=== PATIENT | male | born 1975 | race Two or more races ===

== ENCOUNTER 2019-01-01 14:41 | Inpatient (IN) | payer MEDICAID | END 2019-01-03 15:10 | disposition home or self-care (01) | LOC: ER 14:41 → TELE-WESTW 20:21 → TELE 14:42 → TELE-WESTW 20:47 | DX: I48.0 Paroxysmal atrial fibrillation (principal); D69.6 Thrombocytopenia, unspecified; F10.20 Alcohol dependence, uncomplicated; F41.9 Anxiety disorder, unspecified; R74.8 Abnormal levels of other serum enzymes; J45.909 Unspecified asthma, uncomplicated ==

== ENCOUNTER 2019-02-13 20:52 | Emergency (ER) | payer MEDICAID ==
[~2019-02-13] VITALS: Ht 180.3 cm; Wt 91.2 kg
[~2019-02-13 20:52] MED LIST: AMOX-263 PO; CHL25C PO; MET25T PO; PANT40T PO; RIV20T PO
[2019-02-13 21:40] VITALS: BP 130/84
[2019-02-13 22:23] LABS: Basophils # (auto) 0.1 uL; Eosinophils % (auto) 14.1 % (0.0-7.0); Hematocrit 49.1 % (41.0-53.0); Hemoglobin 16.9 g/dL (13.5-17.5); Lymphocytes # (auto) 3.2 uL; Lymphocytes % (auto) 21.9 % (10.0-50.0); Mean Corpuscular Hemoglobin 30.7 pg (28.0-32.0); Mean Corpuscular Hgb Conc. 34.5 g/dL (32.0-36.0); Mean Corpuscular Volume 88.9 fL (80.0-100.0); Monocytes # (auto) 1.1 uL; Monocytes % (auto) 7.7 % (0.0-12.0); Neutrophils % (auto) 55.3 % (37.0-80.0); Nucleated Red Blood Cells % 0.1 %; Platelet Count (auto) 323 10^3/uL (140-450); Red Blood Cells 5.52 10^6/uL (4.5-5.90); Red Cell Distribution Width 13.9 % (11.8-14.3); White Blood Cell 14.5 10^3/uL (4.4-10.8)
[2019-02-13 22:36] LABS: Alanine Aminotransferase 34 U/L (16-61); Albumin 3.9 g/dL (3.4-5.0); Anion Gap 13 (5-15); Blood Urea Nitrogen 6 mg/dL (7-18); Calcium 8.4 mg/dL (8.5-10.1); Carbon Dioxide 25 mmol/L (21-32); Chloride 97 mmol/L (98-107); Glucose 112 mg/dL (74-106); Magnesium 2.6 mg/dL (1.6-2.6); Salicylate < 1.7 mg/dL (2.8-20.0); Sodium 135 mmol/L (136-145)
[2019-02-13 22:38] LABS: Acetaminophen < 2.0 ug/mL (10-30)
[2019-02-13 22:39] LABS: Lactic Acid w/Reflex 2.8 mmol/L (0.4-2.0)
[2019-02-13 22:41] LABS: Alkaline Phosphatase 105 U/L (45-117); Aspartate Aminotransferase 33 U/L (15-37); BUN/Creatinine Ratio 7.5; Bilirubin, Total 0.4 mg/dL (0.2-1.0); GFR African American 136 mL/min; GFR Non-African American 113 mL/min; Total Protein 8.4 g/dL (6.4-8.2)
== END 2019-02-14 04:14 | disposition left against medical advice (07) ==
LOC: ER 20:54
DX: R05 Cough (principal); R07.9 Chest pain, unspecified; Z53.21 Procedure and treatment not carried out due to patient leaving prior to being seen by health care provider
CPT/HCPCS: 36415; 80053; 80320; 80329; 83605; 83735; 84484; 85025; 85379; 93005; 94761

== ENCOUNTER 2019-06-24 10:06 | Emergency (ER) | payer MEDICAID ==
[~2019-06-24] VITALS: Ht 180.3 cm; Wt 92.5 kg
[2019-06-24] MEDS ORDERED: SODIUM CHLORIDE 0.9% 1,000 ML IV ONE ×2 (10:11)
[2019-06-24] MEDS ORDERED: chlordiazePOXIDE HCL 5 MG CAP PO ONE (10:15)
[2019-06-24] MEDS ORDERED: PANTOPRAZOLE 40 MG/10 ML VIAL INJ IV ONE (10:30)
[2019-06-24 10:42] LABS: Basophils # (auto) 0 uL; Basophils % (auto) 0.5 % (0.0-2.0); Eosinophils # (auto) 0 uL; Eosinophils % (auto) 0.6 % (0.0-7.0); Hemoglobin 15.6 g/dL (13.5-17.5); Lymphocytes # (auto) 1.5 uL; Mean Corpuscular Hemoglobin 30.8 pg (28.0-32.0); Mean Corpuscular Hgb Conc. 34.6 g/dL (32.0-36.0); Mean Corpuscular Volume 89.1 fL (80.0-100.0); Monocytes # (auto) 0.7 uL; Monocytes % (auto) 11.2 % (0.0-12.0); Neutrophils # (auto) 4.4 uL; Neutrophils % (auto) 65.7 % (37.0-80.0); Platelet Count (auto) 143 10^3/uL (140-450); Red Blood Cells 5.05 10^6/uL (4.5-5.90); Red Cell Distribution Width 14.6 % (11.8-14.3); White Blood Cell 6.7 10^3/uL (4.4-10.8)
[2019-06-24 11:05] LABS: Albumin 3.5 g/dL (3.4-5.0); Anion Gap 6 (5-15); Blood Urea Nitrogen 6 mg/dL (7-18); Calcium 8.9 mg/dL (8.5-10.1); Carbon Dioxide 27 mmol/L (21-32); Chloride 99 mmol/L (98-107); Glucose 118 mg/dL (74-106); Potassium 3.5 mmol/L (3.5-5.1); Sodium 132 mmol/L (136-145)
[2019-06-24 11:10] LABS: Alanine Aminotransferase 49 U/L (16-61); Alkaline Phosphatase 112 U/L (45-117); Aspartate Aminotransferase 44 U/L (15-37); BUN/Creatinine Ratio 6.9; Bilirubin, Total 1.2 mg/dL (0.2-1.0); GFR African American 124 mL/min; GFR Non-African American 102 mL/min
[2019-06-24 16:20] VITALS: BP 140/73
== END 2019-06-24 16:50 | disposition home or self-care (01) ==
LOC: ER 10:06
DX: F10.239 Alcohol dependence with withdrawal, unspecified (principal); F41.9 Anxiety disorder, unspecified; E86.0 Dehydration; J45.909 Unspecified asthma, uncomplicated; F17.210 Nicotine dependence, cigarettes, uncomplicated; Y90.9 Presence of alcohol in blood, level not specified
CPT/HCPCS: 36415; 80053; 84484; 85025; 96361; 96374; 99283; C9113; J7030

== ENCOUNTER 2020-04-30 14:05 | Emergency (ER) | payer MEDICAID ==
[~2020-04-30] VITALS: Ht 180.3 cm; Wt 99.8 kg
[2020-04-30 16:10] VITALS: BP 130/71
== END 2020-04-30 15:24 | disposition home or self-care (01) ==
LOC: ER 14:05
DX: J45.909 Unspecified asthma, uncomplicated (principal); Z20.828 Contact with and (suspected) exposure to other viral communicable diseases
CPT/HCPCS: 36415; 71045; 87426

== ENCOUNTER 2020-09-10 09:04 | Inpatient (IN) | payer MEDICAID ==
[~2020-09-10] VITALS: Ht 177.8 cm; Wt 96.6 kg
[2020-09-10] MEDS ORDERED: LORazepam 2MG/ML-1ML VIAL IV ONE ×4 (09:15→18:45)
[2020-09-10] MEDS ORDERED: THIAMINE 100mg/ml INJ (200mg/2ml VIAL) IV ONE (09:15)
[2020-09-10] MEDS ORDERED: SODIUM CHLORIDE 0.9% 1,000 ML IV ONE ×4 (09:15→12:45)
[2020-09-10 09:36] LABS: Hematocrit 38.8 % (41.0-53.0); Hemoglobin 13.7 g/dL (13.5-17.5); Mean Corpuscular Hemoglobin 29.6 pg (28.0-32.0); Mean Corpuscular Hgb Conc. 35.3 g/dL (32.0-36.0); Mean Corpuscular Volume 83.7 fL (80.0-100.0); Platelet Count (auto) 313 10^3/uL (140-450); Red Blood Cells 4.63 10^6/uL (4.5-5.90); Red Cell Distribution Width 13.8 % (11.8-14.3); White Blood Cell 24.2 10^3/uL (4.4-10.8)
[2020-09-10 09:48] LABS: Basophils % (manual) 0 (0.0-2.0); Blast Cells 0; Eosinophils % (manual) 0 (0-7); Metamyelocytes % 0; Myelocytes % 0; Promyelocytes % 0; Reactive Lymphocytes 0
[2020-09-10 09:54] LABS: Albumin 3.8 g/dL (3.4-5.0); Anion Gap 31.00001 (5-15); Blood Urea Nitrogen 39 mg/dL (7-18); Calcium 8.6 mg/dL (8.5-10.1); Carbon Dioxide 28 mmol/L (21-32); Chloride < 50 mmol/L (98-107); Glucose 114 mg/dL (74-106); Magnesium 3.6 mg/dL (1.6-2.6)
[2020-09-10 09:57] LABS: Alanine Aminotransferase 44 U/L (16-61); Alkaline Phosphatase 71 U/L (45-117); Aspartate Aminotransferase 58 U/L (15-37); BUN/Creatinine Ratio 17.2; Bilirubin, Total 1.9 mg/dL (0.2-1.0); GFR African American 41 mL/min; GFR Non-African American 33 mL/min; Total Protein 7.6 g/dL (6.4-8.2)
[2020-09-10 11:04] LABS: Band Neutrophils % (manual) 10; Lymphocytes % (manual) 9 (10.0-50.0); Monocytes % (manual) 5 (0-12)
[2020-09-10 11:47] LABS: Potassium 2.5 mmol/L (3.5-5.1); Sodium 109 mmol/L (136-145)
[2020-09-10] MEDS ORDERED: chlordiazePOXIDE HCL 5 MG CAP PO ONE (12:00)
[2020-09-10] MEDS: FOLIC ACID 1 MG in D5W 5% 50 ML INJ SCH (13:00)
[2020-09-10] MEDS ORDERED: ACETAMINOPHEN 325 MG TAB PO PRN (13:00)
[2020-09-10] MEDS ORDERED: SODIUM CHLORIDE 0.9% 1,000 ML IV SCH ×3 (13:00→22:00)
[2020-09-10] MEDS ORDERED: LORazepam 2MG/ML-1ML VIAL IV PRN (13:00)
[2020-09-10] MEDS: POTASSIUM CHL 20MEQ/100ML 100 ML IV SCH ×3 (13:17→18:07)
[2020-09-10] MEDS ORDERED: GABAPENTIN 100 MG CAP PO SCH (14:00)
[2020-09-10 15:52] LABS: BUN/Creatinine Ratio 24.2; Calcium 7.6 mg/dL (8.5-10.1)
[2020-09-10 15:55] LABS: Potassium 2.2 mmol/L (3.5-5.1)
[2020-09-10] MEDS ORDERED: SODIUM CHL 3% 500 ML IV SCH (16:00)
[2020-09-10] MEDS ORDERED: SODIUM CHL 3% 500 ML IV ONE (16:00)
[2020-09-10 16:13] LABS: Amylase 64 U/L (25-115); Lipase 114 U/L (73-393)
[2020-09-10] MEDS ORDERED: SODIUM CHL 3% 100 ML IV ONE (16:30)
[2020-09-10] MEDS ORDERED: POTASSIUM EFFERVESENT TAB 25 MEQ PO ONE (17:15)
[2020-09-10] MEDS ORDERED: LORazepam 2MG/ML-1ML VIAL IM ONE (18:30)
[2020-09-10 18:40] LABS: BUN/Creatinine Ratio 22.5; Calcium 7.7 mg/dL (8.5-10.1)
[2020-09-10 19:16] LABS: Potassium 2.4 mmol/L (3.5-5.1)
[2020-09-10 19:22] LABS: Urine Bacteria NONE SEEN /hpf (None Seen); Urine Blood 2+ /uL (Negative); Urine Specific Gravity 1.016 (1.001-1.035); Urine WBC 16 /hpf (0 - 3)
[2020-09-10 19:31] LABS: Amphetamine Screen, Urine NEGATIVE (NEGATIVE); Barbiturate Scree,Urine NEGATIVE (NEGATIVE); Benzodiazephine Screen, Urine NEGATIVE (NEGATIVE); Cannabinoid Screen, Urine NEGATIVE (NEGATIVE); Cocaine Screen, Urine NEGATIVE (NEGATIVE); Creatinine, Urine 98 mg/dL (30.0-125.0); Opiate Scree,Urine NEGATIVE (NEGATIVE); Phencyclidine Screen, Urine NEGATIVE (NEGATIVE); Sodium Urine 17 mmol/L (40-220)
[2020-09-10 19:32] LABS: Protein, Urine 41.5 mg/dL (0.0-11.9)
[2020-09-10] MEDS ORDERED: POTASSIUM CHL 20MEQ/100ML 100 ML IV ONE (20:15)
[2020-09-10] MEDS: GABAPENTIN 300 MG CAP PO SCH (22:00)
[2020-09-10 22:43] LABS: BUN/Creatinine Ratio 23.1
[2020-09-10] MEDS ORDERED: SOD CHL 0.45% WITH 20MEQ KCL 1,000 ML IV SCH (22:45)
[2020-09-10 22:49] LABS: Potassium 2.2 mmol/L (3.5-5.1)
[2020-09-11 01:56] LABS: BUN/Creatinine Ratio 23.5
[2020-09-11 02:12] LABS: Potassium 2.4 mmol/L (3.5-5.1)
[2020-09-11 04:51] LABS: Basophils # (auto) 0.1 10 ^3/uL (0-0.2); Basophils % (auto) 0.6 % (0.0-2.0); Eosinophils # (auto) 0 10 ^3/uL (0-0.8); Eosinophils % (auto) 0.1 % (0.0-7.0); Hematocrit 34.9 % (41.0-53.0); Hemoglobin 12.4 g/dL (13.5-17.5); Lymphocytes # (auto) 1.3 10 ^3/uL (0.4-5.4); Lymphocytes % (auto) 9.1 % (10.0-50.0); Mean Corpuscular Hemoglobin 29.9 pg (28.0-32.0); Mean Corpuscular Hgb Conc. 35.4 g/dL (32.0-36.0); Mean Corpuscular Volume 84.6 fL (80.0-100.0); Monocytes # (auto) 0.9 10 ^3/uL (0-1.3); Monocytes % (auto) 6.1 % (0.0-12.0); Neutrophils # (auto) 12.2 10 ^3/uL (1.6-8.6); Neutrophils % (auto) 84.1 % (37.0-80.0); Nucleated Red Blood Cells % 0.1 %; Platelet Count (auto) 192 10^3/uL (140-450); Red Blood Cells 4.13 10^6/uL (4.5-5.90); Red Cell Distribution Width 13.9 % (11.8-14.3); White Blood Cell 14.5 10^3/uL (4.4-10.8)
[2020-09-11 05:03] LABS: Albumin 3.5 g/dL (3.4-5.0); Calcium 7.9 mg/dL (8.5-10.1)
[2020-09-11 05:07] LABS: BUN/Creatinine Ratio 20.7; Bilirubin, Total 1.3 mg/dL (0.2-1.0); Phosphorus 2.2 mg/dL (2.5-4.90); Total Protein 6.7 g/dL (6.4-8.2)
[2020-09-11 05:25] LABS: Potassium 2.3 mmol/L (3.5-5.1)
[2020-09-11] MEDS ORDERED: POTASSIUM EFFERVESENT TAB 25 MEQ PO ONE (06:15)
[2020-09-11] MEDS ORDERED: POTASSIUM CHLORIDE 40 MEQ, LIDOCAINE 1% (LOCAL ANESTH.) 4 ML in SODIUM CHL 0.9% 250 ML IV ONE (06:15)
[2020-09-11] MEDS: GABAPENTIN 300 MG CAP PO SCH ×3 (06:25→21:33)
[2020-09-11] MEDS ORDERED: POTASSIUM CHL 20 Meq TABLET PO ONE ×3 (09:00→17:15)
[2020-09-11] MEDS ORDERED: POTASSIUM CHL 20MEQ/100ML 100 ML IV SCH (09:00)
[2020-09-11] MEDS ORDERED: POTASSIUM CHLORIDE 40 MEQ in SOD CHL 0.45% 1,000 ML IV SCH (09:00)
[2020-09-11] MEDS: POTASSIUM CHLORIDE 40 MEQ in D5W 5% 1,000 ML IV SCH ×2 (10:30→17:48)
[2020-09-11 10:52] LABS: BUN/Creatinine Ratio 22.4; Calcium 8.2 mg/dL (8.5-10.1)
[2020-09-11] MEDS: THIAMINE 100mg/ml INJ (200mg/2ml VIAL) IV SCH (10:58)
[2020-09-11] MEDS ORDERED: POTASSIUM PHOSPHATE 44 MEQ in D5W 5% 250 ML IV ONE (11:00)
[2020-09-11 11:39] LABS: Potassium 2.5 mmol/L (3.5-5.1)
[2020-09-11] MEDS: chlordiazePOXIDE HCL 25 MG CAP PO PRN ×2 (12:48→22:42)
[2020-09-11 13:03] VITALS: BP 130/73
[2020-09-11 14:10] LABS: Albumin 3.3 g/dL (3.4-5.0); Calcium 8.2 mg/dL (8.5-10.1)
[2020-09-11 14:15] LABS: BUN/Creatinine Ratio 17.6; Bilirubin, Total 1.2 mg/dL (0.2-1.0); Total Protein 6.6 g/dL (6.4-8.2)
[2020-09-11 14:55] LABS: Potassium 2.5 mmol/L (3.5-5.1)
[2020-09-11 15:06] VITALS: BP 130/73
[2020-09-11 16:50] LABS: Calcium 8.2 mg/dL (8.5-10.1)
[2020-09-11 16:59] LABS: Potassium 2.5 mmol/L (3.5-5.1)
[2020-09-11 17:15] VITALS: BP 120/72
[2020-09-11] MEDS: FOLIC ACID 1 MG in D5W 5% 50 ML INJ SCH (17:48)
[2020-09-11 18:14] LABS: Potassium 2.6 mmol/L (3.5-5.1)
[2020-09-11 20:00] VITALS: BP 101/61
[2020-09-11 20:02] LABS: Calcium 8.4 mg/dL (8.5-10.1); Potassium 3.2 mmol/L (3.5-5.1)
[2020-09-11 22:14] VITALS: BP 101/61
[2020-09-11 23:09] LABS: BUN/Creatinine Ratio 15.8; Calcium 8.1 mg/dL (8.5-10.1)
[2020-09-11 23:10] LABS: Potassium 2.9 mmol/L (3.5-5.1)
[2020-09-12 05:00] VITALS: BP 112/76
[2020-09-12] MEDS: POTASSIUM CHLORIDE 40 MEQ in D5W 5% 1,000 ML IV SCH (05:30)
[2020-09-12] MEDS: GABAPENTIN 300 MG CAP PO SCH ×2 (05:47→14:24)
[2020-09-12 09:00] VITALS: BP 130/72
[2020-09-12] MEDS: FOLIC ACID 1 MG in D5W 5% 50 ML INJ SCH (10:34)
[2020-09-12] MEDS: THIAMINE 100mg/ml INJ (200mg/2ml VIAL) IV SCH (10:35)
[2020-09-12 10:43] LABS: Basophils # (auto) 0 10 ^3/uL (0-0.2); Basophils % (auto) 0.2 % (0.0-2.0); Eosinophils # (auto) 0.4 10 ^3/uL (0-0.8); Eosinophils % (auto) 3.3 % (0.0-7.0); Hematocrit 34.6 % (41.0-53.0); Hemoglobin 11.7 g/dL (13.5-17.5); Lymphocytes # (auto) 1.8 10 ^3/uL (0.4-5.4); Lymphocytes % (auto) 15.8 % (10.0-50.0); Mean Corpuscular Hemoglobin 29.3 pg (28.0-32.0); Mean Corpuscular Hgb Conc. 33.9 g/dL (32.0-36.0); Mean Corpuscular Volume 86.5 fL (80.0-100.0); Monocytes # (auto) 0.9 10 ^3/uL (0-1.3); Monocytes % (auto) 7.6 % (0.0-12.0); Neutrophils # (auto) 8.2 10 ^3/uL (1.6-8.6); Neutrophils % (auto) 73.1 % (37.0-80.0); Platelet Count (auto) 188 10^3/uL (140-450); Red Cell Distribution Width 13.6 % (11.8-14.3); White Blood Cell 11.2 10^3/uL (4.4-10.8)
[2020-09-12 10:50] LABS: Albumin 3.1 g/dL (3.4-5.0); Calcium 8.3 mg/dL (8.5-10.1); Potassium 3.1 mmol/L (3.5-5.1)
[2020-09-12 10:53] LABS: BUN/Creatinine Ratio 15.1; Bilirubin, Total 0.8 mg/dL (0.2-1.0); Total Protein 6.6 g/dL (6.4-8.2)
[2020-09-12] MEDS ORDERED: POTASSIUM PHOSPHATE 22 MEQ in SODIUM CHL 0.9% 100 ML IV ONE (11:45)
[2020-09-12] MEDS ORDERED: FOLI1TAB6 PO ×2 (11:51)
[2020-09-12] MEDS ORDERED: THIA50CA PO ×2 (11:51)
[2020-09-12] MEDS ORDERED: GABA300C10 PO ×2 (11:51)
[2020-09-12] MEDS ORDERED: POTASSIUM CHL 20 Meq TABLET PO ONE ×2 (12:00)
[2020-09-12 12:41] VITALS: BP 128/79
[2020-09-12 16:58] VITALS: BP 143/73
== END 2020-09-12 20:03 | disposition home health service (06) | DRG 280 ==
LOC: ER 09:04 → EDBD 09:04 → TELE 09:05 → TELE-WESTW 09-11 11:46
PROVIDERS: ADMIT Internal Medicine; ATTEND Internal Medicine Nephrology
DX: K70.10 Alcoholic hepatitis without ascites (principal); N17.0 Acute kidney failure with tubular necrosis; Z20.822 Contact with and (suspected) exposure to COVID-19; E83.39 Other disorders of phosphorus metabolism; E87.1 Hypo-osmolality and hyponatremia; E86.0 Dehydration; D72.829 Elevated white blood cell count, unspecified; G40.909 Epilepsy, unspecified, not intractable, without status epilepticus; Y90.1 Blood alcohol level of 20-39 mg/100 ml; F10.239 Alcohol dependence with withdrawal, unspecified; E87.6 Hypokalemia; F10.229 Alcohol dependence with intoxication, unspecified; F17.210 Nicotine dependence, cigarettes, uncomplicated; J45.909 Unspecified asthma, uncomplicated
CPT/HCPCS: 36415; 51702; 70450; 71045; 72125; 72192; 76775; 80048; 80053; 80307; 80320; 81001; 82150; 82570; 83690; 83735; 83935; 84100; 84156; 84300; 85007; 85025; 85027; 87040; 87426; 93005; 96361; 96374; 96375; 96376; 99291; G0378; J2001; J3480; J7060

== ENCOUNTER 2020-09-15 11:58 | Emergency (ER) | payer MEDICAID ==
[~2020-09-15] VITALS: Ht 180.3 cm; Wt 99.8 kg
[~2020-09-15 11:58] MED LIST changes: -AMOX-263 PO; -CHL25C PO; +FOLI1TAB6 PO; +GABA300C10 PO; -MET25T PO; -PANT40T PO; -RIV20T PO; +THIA50CA PO
[2020-09-15 12:24] LABS: Urine WBC None Seen /hpf (0 - 3)
[2020-09-15 12:39] LABS: Basophils # (auto) 0.1 10 ^3/uL (0-0.2); Basophils % (auto) 0.7 % (0.0-2.0); Eosinophils # (auto) 0.6 10 ^3/uL (0-0.8); Hemoglobin 11.4 g/dL (13.5-17.5); Lymphocytes # (auto) 1.7 10 ^3/uL (0.4-5.4); Lymphocytes % (auto) 17.6 % (10.0-50.0); Mean Corpuscular Hemoglobin 30.2 pg (28.0-32.0); Mean Corpuscular Hgb Conc. 34.4 g/dL (32.0-36.0); Mean Corpuscular Volume 87.7 fL (80.0-100.0); Monocytes # (auto) 1.3 10 ^3/uL (0-1.3); Monocytes % (auto) 13.4 % (0.0-12.0); Neutrophils % (auto) 62.3 % (37.0-80.0); Platelet Count (auto) 251 10^3/uL (140-450); Red Blood Cells 3.77 10^6/uL (4.5-5.90); Red Cell Distribution Width 14.9 % (11.8-14.3); White Blood Cell 9.6 10^3/uL (4.4-10.8)
[2020-09-15 12:40] LABS: Urine Bacteria NONE SEEN /hpf (None Seen); Urine Blood Negative /uL (Negative); Urine Specific Gravity 1.003 (1.001-1.035)
[2020-09-15 12:53] LABS: Calcium 8.5 mg/dL (8.5-10.1); Magnesium 1.9 mg/dL (1.6-2.6)
[2020-09-15 12:59] LABS: Amphetamine Screen, Urine NEGATIVE (NEGATIVE); Barbiturate Scree,Urine NEGATIVE (NEGATIVE); Benzodiazephine Screen, Urine POSITIVE (NEGATIVE); Cannabinoid Screen, Urine NEGATIVE (NEGATIVE); Cocaine Screen, Urine NEGATIVE (NEGATIVE); Opiate Scree,Urine NEGATIVE (NEGATIVE); Phencyclidine Screen, Urine NEGATIVE (NEGATIVE)
[2020-09-15 12:59] LABS: Albumin 3.2 g/dL (3.4-5.0); BUN/Creatinine Ratio 5.7; Bilirubin, Total 0.4 mg/dL (0.2-1.0); Total Protein 6.8 g/dL (6.4-8.2)
[2020-09-15] MEDS ORDERED: PANTOPRAZOLE 40 MG TAB PO ONE ×2 (15:06→15:15)
[2020-09-15 15:58] VITALS: BP 136/82
== END 2020-09-15 16:01 | disposition home or self-care (01) ==
LOC: ER 11:58
DX: K29.60 Other gastritis without bleeding (principal); K46.9 Unspecified abdominal hernia without obstruction or gangrene; K44.9 Diaphragmatic hernia without obstruction or gangrene; R79.89 Other specified abnormal findings of blood chemistry; F17.210 Nicotine dependence, cigarettes, uncomplicated; Z88.8 Allergy status to other drugs, medicaments and biological substances
CPT/HCPCS: 36415; 74176; 80053; 80307; 80320; 81001; 82150; 83690; 83735; 85025

== ENCOUNTER 2021-07-07 09:00 | Inpatient (IN) | payer MEDICAID ==
[~2021-07-07] VITALS: Ht 180.3 cm; Wt 95.3 kg
[2021-07-07] MEDS ORDERED: ADENOSINE 6 MG/2 ML INJ IV ONE ×2 (09:17→09:20)
[2021-07-07] MEDS ORDERED: LORazepam 2MG/ML-1ML VIAL ONE (09:24)
[2021-07-07 10:06] LABS: Albumin 3.7 g/dL (3.4-5.0); Calcium 8.4 mg/dL (8.5-10.1); Magnesium 2.8 mg/dL (1.6-2.6); Potassium 3.5 mmol/L (3.5-5.1)
[2021-07-07 10:08] LABS: Eosinophils # (auto) 0.1 10 ^3/uL (0-0.8); Lymphocytes % (auto) 12.8 % (10.0-50.0); Monocytes # (auto) 1.2 10 ^3/uL (0-1.3); Neutrophils # (auto) 11.2 10 ^3/uL (1.6-8.6); Neutrophils % (auto) 77.5 % (37.0-80.0)
[2021-07-07 10:10] LABS: Basophils # (auto) 0.1 10 ^3/uL (0-0.2); Basophils % (auto) 0.8 % (0.0-2.0); Eosinophils % (auto) 0.4 % (0.0-7.0); Hematocrit 35.3 % (41.0-53.0); Hemoglobin 10.9 g/dL (13.5-17.5); Lymphocytes # (auto) 1.8 10 ^3/uL (0.4-5.4); Mean Corpuscular Hemoglobin 22.1 pg (28.0-32.0); Mean Corpuscular Hgb Conc. 30.9 g/dL (32.0-36.0); Mean Corpuscular Volume 71.5 fL (80.0-100.0); Monocytes % (auto) 8.5 % (0.0-12.0); Nucleated Red Blood Cells % 0.1 %; Red Blood Cells 4.94 10^6/uL (4.5-5.90); Red Cell Distribution Width 24.1 % (11.8-14.3); White Blood Cell 14.4 10^3/uL (4.4-10.8)
[2021-07-07 10:12] LABS: Bilirubin, Total 0.5 mg/dL (0.2-1.0); Total Protein 8.1 g/dL (6.4-8.2)
[2021-07-07 10:49] LABS: INR 0.92 (0.9-1.15); Partial Thromboplastin Time 26.5 sec (23.6-33.0)
[2021-07-07] MEDS ORDERED: LORazepam 2MG/ML-1ML VIAL IV ONE (13:15)
[2021-07-07] MEDS ORDERED: NITROGLYCERIN 0.4 MG SL TAB SL ONE ×2 (14:00→14:06)
[2021-07-07] MEDS ORDERED: ASPirin 81 mg TAB PO ONE (14:00)
[2021-07-07] MEDS ORDERED: ASPirin-EC 81 mg tab PO ONE (14:06)
[2021-07-07] MEDS ORDERED: NITROGLYCERIN 0.4 MG SL TAB SL PRN (15:00)
[2021-07-07] MEDS ORDERED: PROMETHAZINE HCL 25 MG/ML 1ML IV PRN (15:00)
[2021-07-07] MEDS ORDERED: HYDROcodone-ACET 5/325MG TAB PO PRN (15:00)
[2021-07-07] MEDS: SODIUM CHLORIDE 0.9% 1,000 ML IV SCH ×3 (15:00→22:18)
[2021-07-07] MEDS ORDERED: MORPHINE SULFATE INJECTION 2 MG/ML SYRG IV PRN (15:00)
[2021-07-07] MEDS ORDERED: ACETAMINOPHEN 500 MG TAB PO PRN (15:00)
[2021-07-07] MEDS: FOLIC ACID 1 MG, MULTIPLE VITAMIN 10 ML, THIAMINE INJ 100 MG in SODIUM CHLORIDE 0.9% 1,... INJ SCH ×2 (17:12→22:19)
[2021-07-07] MEDS: GABAPENTIN 300 MG CAP PO SCH ×2 (17:22→22:22)
[2021-07-07] MEDS: PROPRANOLOL HCL 20 MG TAB PO SCH ×2 (22:20→22:24)
[2021-07-07] MEDS: PANTOPRAZOLE 40 MG TAB PO SCH (22:21)
[2021-07-08] MEDS: FOLIC ACID 1 MG, MULTIPLE VITAMIN 10 ML, THIAMINE INJ 100 MG in SODIUM CHLORIDE 0.9% 1,... INJ SCH (05:17)
[2021-07-08 07:57] LABS: Calcium 8.3 mg/dL (8.5-10.1); Potassium 3.7 mmol/L (3.5-5.1)
[2021-07-08 07:59] LABS: BUN/Creatinine Ratio 12.3
[2021-07-08] MEDS ORDERED: THIAMINE HCL 100 MG TAB PO SCH (10:00)
[2021-07-08] MEDS: GABAPENTIN 300 MG CAP PO SCH ×4 (10:02→23:00)
[2021-07-08] MEDS: PANTOPRAZOLE 40 MG TAB PO SCH ×2 (10:03→23:00)
[2021-07-08] MEDS ORDERED: FOLIC ACID 1 MG, MULTIPLE VITAMIN 10 ML, THIAMINE INJ 100 MG in SODIUM CHLORIDE 0.9% 1,... INJ SCH (12:00)
[2021-07-08] MEDS: LORazepam 2MG/ML-1ML VIAL IV PRN (13:14)
[2021-07-08 16:21] LABS: Alcohol, Urine < 3.0 mg/dL (0-10); Amphetamine Screen, Urine NEGATIVE (NEGATIVE); Barbiturate Scree,Urine NEGATIVE (NEGATIVE); Benzodiazephine Screen, Urine NEGATIVE (NEGATIVE); Cannabinoid Screen, Urine NEGATIVE (NEGATIVE); Cocaine Screen, Urine NEGATIVE (NEGATIVE); Opiate Scree,Urine NEGATIVE (NEGATIVE); Phencyclidine Screen, Urine NEGATIVE (NEGATIVE)
[2021-07-08] MEDS: SODIUM CHLORIDE 0.9% 1,000 ML IV SCH (23:00)
[2021-07-08] MEDS: PROPRANOLOL HCL 20 MG TAB PO SCH (23:00)
[2021-07-09] MEDS: LORazepam 2MG/ML-1ML VIAL IV PRN (00:15)
[2021-07-09] MEDS: GABAPENTIN 300 MG CAP PO SCH (06:11)
[2021-07-09] MEDS: SODIUM CHLORIDE 0.9% 1,000 ML IV SCH (06:11)
[2021-07-09] MEDS: PANTOPRAZOLE 40 MG TAB PO SCH (10:04)
[2021-07-09] MEDS: PROPRANOLOL HCL 20 MG TAB PO SCH (10:04)
[2021-07-09 10:24] VITALS: BP 142/93
[2021-07-09] MEDS ORDERED: PROP20TA73 PO (11:22)
[2021-07-09] MEDS ORDERED: GABA300C10 PO (11:22)
[2021-07-09] MEDS ORDERED: FOLIC ACID 1 MG, MULTIPLE VITAMIN 10 ML, THIAMINE INJ 100 MG, MAGNESIUM SULF SDV 50% 8 ... INJ SCH ×5 (12:00)
== END 2021-07-09 11:52 | disposition home or self-care (01) | DRG 201 ==
LOC: ER 09:00 → TELE 14:49
PROVIDERS: ADMIT Hospitalist; ATTEND Hospitalist
DX: I47.1 Supraventricular tachycardia (principal); K70.9 Alcoholic liver disease, unspecified; D64.9 Anemia, unspecified; F41.9 Anxiety disorder, unspecified; E66.9 Obesity, unspecified; F10.229 Alcohol dependence with intoxication, unspecified; F17.210 Nicotine dependence, cigarettes, uncomplicated; J45.909 Unspecified asthma, uncomplicated; Z20.822 Contact with and (suspected) exposure to COVID-19; F10.21 Alcohol dependence, in remission; Z68.29 Body mass index [BMI] 29.0-29.9, adult; Z82.49 Family history of ischemic heart disease and other diseases of the circulatory system
CPT/HCPCS: 36415; 71045; 80048; 80053; 80307; 80320; 83735; 84439; 84443; 84484; 85025; 85610; 85730; 87426; 93005; 93306; 96365; 96375; 96376; G0378

== ENCOUNTER 2021-08-11 14:40 | Emergency (ER) | payer MEDICAID ==
[~2021-08-11] VITALS: Ht 180.3 cm; Wt 95.3 kg
[~2021-08-11 14:40] MED LIST changes: +PROP20TA73 PO
[2021-08-11] MEDS ORDERED: LORazepam 2MG/ML-1ML VIAL IV ONE (15:15)
[2021-08-11] MEDS ORDERED: SODIUM CHLORIDE 0.9% 1,000 ML IV ONE (15:15)
[2021-08-11 15:18] LABS: Mean Corpuscular Hemoglobin 21.6 pg (28.0-32.0); Mean Corpuscular Hgb Conc. 31.4 g/dL (32.0-36.0); Monocytes # (auto) 0.8 10 ^3/uL (0-1.3); Nucleated Red Blood Cells % 0.1 %
[2021-08-11 15:33] LABS: Basophils # (auto) 0.1 10 ^3/uL (0-0.2); Basophils % (auto) 0.6 % (0.0-2.0); Eosinophils # (auto) 0 10 ^3/uL (0-0.8); Eosinophils % (auto) 0.5 % (0.0-7.0); Hematocrit 38.7 % (41.0-53.0); Hemoglobin 12.2 g/dL (13.5-17.5); Lymphocytes % (auto) 21.8 % (10.0-50.0); Mean Corpuscular Volume 68.9 fL (80.0-100.0); Monocytes % (auto) 8.6 % (0.0-12.0); Neutrophils # (auto) 6.2 10 ^3/uL (1.6-8.6); Neutrophils % (auto) 68.5 % (37.0-80.0); Red Blood Cells 5.62 10^6/uL (4.5-5.90)
[2021-08-11 15:34] LABS: Red Cell Distribution Width 25.6 % (11.8-14.3)
[2021-08-11 15:36] LABS: Albumin 3.9 g/dL (3.4-5.0); Calcium 8.8 mg/dL (8.5-10.1); Potassium 4.1 mmol/L (3.5-5.1)
[2021-08-11 15:40] LABS: Bilirubin, Total 0.6 mg/dL (0.2-1.0); Total Protein 8.3 g/dL (6.4-8.2)
[2021-08-11] MEDS ORDERED: PANTOPRAZOLE 40 MG/10 ML VIAL INJ IV ONE (16:30)
[2021-08-11] MEDS ORDERED: PANT40TA2 PO (16:49)
[2021-08-11] MEDS ORDERED: LORA0.5T20 PO (16:50)
[2021-08-11 17:43] VITALS: BP 133/88
== END 2021-08-11 18:48 | disposition home or self-care (01) ==
LOC: ER 14:40
DX: F10.20 Alcohol dependence, uncomplicated (principal); K29.70 Gastritis, unspecified, without bleeding; J45.909 Unspecified asthma, uncomplicated; F41.9 Anxiety disorder, unspecified; R94.31 Abnormal electrocardiogram [ECG] [EKG]; Z20.822 Contact with and (suspected) exposure to COVID-19; Y90.8 Blood alcohol level of 240 mg/100 ml or more
CPT/HCPCS: 36415; 80053; 80320; 85025; 87426; 93005; 96361; 96374; 96375; 99284; C9113; J2060; J7030

== ENCOUNTER 2022-05-27 22:32 | Emergency (ER) | payer MEDICAID ==
[~2022-05-27] VITALS: Ht 182.9 cm; Wt 93.0 kg
[~2022-05-27 22:32] MED LIST changes: -ALBUAER3 IN; -CHL25C GT; -FOLI5CAP PO; -THIA100T10 GT
[2022-05-28 00:06] LABS: Basophils # (auto) 0.1 10 ^3/uL (0-0.2); Eosinophils # (auto) 0 10 ^3/uL (0-0.8); Nucleated Red Blood Cells % 0.1 %
[2022-05-28 00:08] LABS: Basophils % (auto) 1.1 % (0.0-2.0); Hematocrit 52.9 % (41.0-53.0); Lymphocytes # (auto) 1.6 10 ^3/uL (0.4-5.4); Lymphocytes % (auto) 12.2 % (10.0-50.0); Mean Corpuscular Hemoglobin 25.7 pg (28.0-32.0); Mean Corpuscular Hgb Conc. 32.2 g/dL (32.0-36.0); Mean Corpuscular Volume 79.8 fL (80.0-100.0); Monocytes # (auto) 0.7 10 ^3/uL (0-1.3); Monocytes % (auto) 5.8 % (0.0-12.0); Neutrophils # (auto) 10.4 10 ^3/uL (1.6-8.6); Neutrophils % (auto) 80.9 % (37.0-80.0); Red Blood Cells 6.63 10^6/uL (4.5-5.90); White Blood Cell 12.8 10^3/uL (4.4-10.8)
[2022-05-28 00:14] LABS: Red Cell Distribution Width 20.1 % (11.8-14.3)
[2022-05-28 00:21] LABS: Albumin 3.9 g/dL (3.4-5.0); BUN/Creatinine Ratio 17.8; Calcium 8.3 mg/dL (8.5-10.1); Potassium 4.7 mmol/L (3.5-5.1)
[2022-05-28 00:34] LABS: Bilirubin, Total 0.5 mg/dL (0.2-1.0); Total Protein 8.3 g/dL (6.4-8.2)
[2022-05-28] MEDS ORDERED: SODIUM CHLORIDE 0.9% 500 ML IV ONE (07:30)
[2022-05-28] MEDS ORDERED: LORazepam 0.5 MG TAB PO ONE (08:15)
[2022-05-28 08:41] VITALS: BP 119/66
[2022-05-28] MEDS ORDERED: PANTOPRAZOLE 40 MG TAB PO ONE (09:00)
[2022-05-28] MEDS ORDERED: FOLIC ACID 1 MG in D5W 5% 50 ML INJ ONE (09:00)
[2022-05-28] MEDS ORDERED: SODIUM CHLORIDE 0.9% 1,000 ML IVB ONE (09:00)
[2022-05-28] MEDS ORDERED: LORazepam 2MG/ML-1ML VIAL IV ONE (09:00)
[2022-05-28] MEDS ORDERED: THIAMINE 100mg/ml INJ (200mg/2ml VIAL) IV ONE (09:00)
[2022-05-28 10:21] LABS: Magnesium 1.8 mg/dL (1.6-2.6)
[2022-05-28] MEDS ORDERED: CHL25C GT (15:04)
[2022-05-28] MEDS ORDERED: THIA100T10 GT (15:04)
[2022-05-28] MEDS ORDERED: FOLI5CAP PO (15:04)
[2022-05-28] MEDS ORDERED: ALBUAER3 IN (15:22)
== END 2022-05-28 15:32 | disposition home or self-care (01) ==
LOC: ER 22:32 → EDUNIT# 22:32 → EDBD 22:32 → ER 05-28 15:32
DX: F10.129 Alcohol abuse with intoxication, unspecified (principal); J45.909 Unspecified asthma, uncomplicated; F17.210 Nicotine dependence, cigarettes, uncomplicated; Z79.899 Other long term (current) drug therapy; Y90.8 Blood alcohol level of 240 mg/100 ml or more
CPT/HCPCS: 36415; 80053; 80320; 83690; 83735; 85025; 93005; 96361; 96365; 96375; 99285; J2060; J3411; J7030; J7040; J7060

== ENCOUNTER → 2022-05-27 | Emergency (ER) | payer MEDICAID ==
[~2022-05-27] VITALS: Ht 177.8 cm; Wt 92.0 kg
[~2022-05-27] MED LIST changes: +ALBUAER3 IN; +CHL25C GT; +FOLI5CAP PO; +LORA0.5T20 PO; +PANT40TA2 PO; +THIA100T10 GT
[2022-05-27 14:16] VITALS: BP 116/82
== END | disposition home or self-care (01) ==
LOC: EDUNIT# 12:39 → ER 12:55 → EDBD 12:55
DX: F10.10 Alcohol abuse, uncomplicated (principal); R41.82 Altered mental status, unspecified; F12.10 Cannabis abuse, uncomplicated; J45.909 Unspecified asthma, uncomplicated; R94.31 Abnormal electrocardiogram [ECG] [EKG]
CPT/HCPCS: 36415; 80320; 93005; 99284; J7060

== ENCOUNTER 2023-02-27 15:45 | Emergency (ER) | payer MEDICAID ==
[~2023-02-27] VITALS: Ht 180.3 cm; Wt 94.3 kg
[~2023-02-27 15:45] MED LIST changes: +ALBUAER3 IN; +CHL25C GT; +FOLI-119 PO; -FOLI1TAB6 PO; +FOLI5CAP PO; +GABA-1250 PO; -GABA300C10 PO; +LORA-1121 PO; -LORA0.5T20 PO; +PROP1TAB53 PO; -PROP20TA73 PO; +THIA100T10 GT
[2023-02-27 16:18] LABS: Urine WBC None Seen /hpf (0 - 3)
[2023-02-27 16:33] LABS: Urine Bacteria NONE SEEN /hpf (None Seen); Urine Blood Negative /uL (Negative); Urine Clarity Clear (Clear); Urine Color Colorless (Yellow); Urine Protein, UAD Negative (Negative); Urine Specific Gravity 1.002 (1.001-1.035); Urine Urobilinogen Normal (Negative)
[2023-02-27] MEDS ORDERED: ALBU108A5 IN ×4 (19:47→21:19)
[2023-02-27] MEDS ORDERED: ALPR0.5T7 PO ×3 (19:47→20:15)
[2023-02-27 20:11] VITALS: BP 155/94; PULSE 81; RESP 20; TEMP 98.2; O2SAT 96
[2023-02-27] MEDS ORDERED: LORA-655 PO (21:19)
== END 2023-02-27 20:21 | disposition home or self-care (01) ==
LOC: ER 15:45
DX: F10.139 Alcohol abuse with withdrawal, unspecified (principal); K70.9 Alcoholic liver disease, unspecified; J45.909 Unspecified asthma, uncomplicated; F17.210 Nicotine dependence, cigarettes, uncomplicated; Y90.9 Presence of alcohol in blood, level not specified
CPT/HCPCS: 81001

== ENCOUNTER 2025-03-31 17:23 | Inpatient (IN) | payer MEDICAID ==
[~2025-03-31] VITALS: Ht 177.8 cm; Wt 93.1 kg
[~2025-03-31 17:23] MED LIST changes: +ALBU108A5 IN; +ALPR0.5T7 PO; +LORA-655 PO
--- NOTE | 2025-03-31 17:33 | ECG ---
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
--- NOTE | 2025-03-31 18:04 | DVH ---
CHEST RADIOGRAPH Indication: Palpitations Technique: Single frontal view of the chest was obtained Comparison: XR CHEST 1 VIEW on DOS: 01/27/25, CHEST PORTABLE on DOS: 07/07/21, CHEST PORTABLE on DOS: FINDINGS: Lines and Tubes: None Lungs: No focal consolidation. Unchanged bilateral hilar prominence. Pleura: No effusion. No pneumothorax. Cardiomediastinal contours: Unremarkable Bones: No acute osseous abnormality. IMPRESSION: No acute cardiopulmonary disease. Unchanged bilateral hilar prominence
[2025-03-31 18:11] LABS: Chloride 106 mmol/L (98-107); Potassium 4.2 mmol/L (3.5-5.1); Sodium 139 mmol/L (136-145)
[2025-03-31 18:12] LABS: Anion Gap 10 (5-15); Calcium 9.4 mg/dL (8.7-10.4); Carbon Dioxide 23 mmol/L (20-31)
[2025-03-31 18:17] LABS: BUN/Creatinine Ratio 14.0 (10.0-20.0); Blood Urea Nitrogen 16 mg/dL (9-23)
[2025-03-31 18:18] LABS: Magnesium 2.0 mg/dL (1.6-2.6)
[2025-03-31 18:36] LABS: Glucose 118 mg/dL (74-106)
[2025-03-31 18:41] LABS: Hematocrit 48.7 % (41.0-53.0); Hemoglobin 16.5 g/dL (13.5-17.5); Mean Corpuscular Hemoglobin 31.0 pg (28.0-32.0); Mean Corpuscular Volume 91.3 fL (80.0-100.0); Nucleated Red Blood Cells % 0.1 %
--- NOTE | 2025-03-31 19:08 | ED.PDOC ---
HPI Comments 49-year-old male with a history of prior alcohol abuse but states that he has not been drinking for least a few months now complains of feeling like his heart is racing and palpitations for the last 2 days. Also some mild shortness of breath with exertion. Patient states he had 1 episode of this before while he had been drinking but then he quit drinking alcohol and has not had any episodes since then Chief Complaint: Palpitations Time Seen by MD: 17:57 Primary Care Provider: NONE Allergies: Coded Allergies: No Known Drug Allergy (Verified Allergy, Unknown, 02/15/19) Home Meds Active Scripts Lorazepam (Ativan) 0.5 Mg Tab, 1 TAB PO BID, #30 TAB Prov:MARK CHINCHILLA 02/27/23 Albuterol Sulfate (Albuterol Sulfate Hfa) 108 Mcg/Act Aer, 108 MCG IN TID PRN, #1 AER Prov:MARK CHINCHILLA 02/27/23 Alprazolam (Alprazolam) 0.5 Mg Tab, 1 TAB PO BID PRN, #30 TAB Prov:MARK CHINCHILLA 02/27/23 Albuterol Sulfate (VENTOLIN MDI) 90 Mcg Ih, 90 MCG IN TID for 30 Days, #1 INH Prov:SAI LAZAR MD 05/28/22 Chlordiazepoxide Hcl (Librium) 25 Mg Cp, 25 MG GT TID for 10 Days, #30 CAP Prov:SAI LAZAR MD 05/28/22 Folic Acid (Folic Acid) 5 Mg Cap, 5 MG PO BS for 30 Days, #30 CAP Prov:SAI LAZAR MD 05/28/22 Thiamine Hcl (VITAMIN B-1) 100 Mg Tb, 100 MG GT BID for 30 Days, #60 TAB Prov:SAI LAZAR MD 05/28/22 Lorazepam (ATIVAN TABLET) 0.5 Mg Tb, 1 TAB PO DAILY, #20 TAB Prov:TIFFANY ORTEGA MD 08/11/21 Pantoprazole Sodium Sesquihydr (Protonix) 40 Mg Tab, 40 MG PO DAILY, #30 TAB Prov:TIFFANY ORTEGA MD 08/11/21 Propranolol HCl (Propranolol Hydrochloride) 20 Mg Tab, 10 MG PO BID, #90 TAB Prov:FIONA RDZ MD 07/09/21 Gabapentin (Gabapentin) 300 Mg Cap, 600 MG PO TID, #42 CAP Follow up with PCP OR ER WITHIN ONE WEEK TO PLAN TAPERING DOSES. Prov:FIONA RDZ MD 07/09/21 Folic Acid (Folic Acid) 1 Mg Tab, 1 MG PO DAILY, #30 TAB Prov:EBONY HIGGINBOTHAM MD 09/12/20 Thiamine Hcl (Thiamine) 50 Mg Cap, 50 MG PO DAILY, #30 CAP Prov:EBONY HIGGINBOTHAM MD 09/12/20 Information Source: Patient Mode of Arrival: Ambulatory Severity: Moderate Timing: Days Duration: Since onset Quality: Tightness Associated Signs and Symptoms: Palpitations Past Medical History PAST MEDICAL HISTORY: Anxiety, Asthma Surgical History: Denies all surgeries Family History Family History: Reviewed,noncontributory to illness Social History Smoker: Cigarettes, Less Than 1 Pack/Day Alcohol: Heavy Drugs: Denies Drug Use Lives In: Home Constitutional: reports: fatigue Cardiovascular: reports: irregular heart beat, palpitations Physical Exam General Appearance: Moderate Distress HEENT: Normal ENT Inspection, Pharynx Normal, TMs Normal Neck: Full Range of Motion, Non-Tender, Normal, Normal Inspection Respiratory: Chest Non-Tender, Lungs Clear, No Accessory Muscle Use, No Respiratory Distress, Normal Breath Sounds Cardiovascular: Tachycardia, Other (Irregularly irregular rhythm) Breast Exam: Deferred Gastrointestinal: No Organomegaly, Non Tender, No Pulsatile Mass, Normal Bowel Sounds, Soft Genitalia: Deferred Pelvic: Deferred Rectal: Deferred Extremities: No calf tenderness, Normal capillary refill, Normal inspection, Normal range of motion, Non-tender, No pedal edema Musculoskeletal : Apperance: Normal Neurologic: Alert, manager integrated II-XII nml as Tested, No Motor Deficits, Normal Affect, Normal Mood, No Sensory Deficits Cerebellar Function: Normal Reflexes: Normal Skin: Dry, Normal Color, Warm Lymphatic: No Adenopathy EKG EKG : Comments Test Date: 2025-03-31 Test Time: 17:29:33 Pat Name: JUANITA CHRISTOPHER Department: [facility] ED Room: 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 Was a procedure done?: No CP Differential Dx Differential Diagnosis: A-fib, A-Flutter, Angina, Heart Failure, Hyperthyroidism, Hyperventilation, MAT, OR, PAC's, Pulmonary Embolus, PVC's, Sinus Tachycardia, V-Fib, V-Tach, Other X-Ray, Labs, Meds, VS Vital Signs Date Time Temp Pulse Resp B/P (MAP) Pulse Ox O2 Delivery O2 Flow Rate FiO2 03/31/25 19:16 95 03/31/25 17:29 110 03/31/25 17:26 98.3 108 18 131/91 96 98.3 Lab Test 03/31/25 19:02 03/31/25 17:36 Range/Units Troponin I High Sensitivity Pending < 3 L </=54 ng/L White Blood Count 13.3 H 4.4-10.8 10^3/uL Red Blood Count 5.33 4.5-5.90 10^6/uL Hemoglobin 16.5 13.5-17.5 g/dL Hematocrit 48.7 41.0-53.0 % Mean Corpuscular Volume 91.3 80.0-100.0 fL Mean Corpuscular Hemoglobin 31.0 28.0-32.0 pg Mean Corpuscular Hemoglobin Concent 33.9 32.0-36.0 g/dL Red Cell Distribution Width 14.0 11.8-14.3 % Platelet Count 180 140-450 10^3/uL Mean Platelet Volume 10.5 6.9-10.8 fL Neutrophils (%) (Auto) 86.3 H 37.0-80.0 % Lymphocytes (%) (Auto) 9.2 L 10.0-50.0 % Monocytes (%) (Auto) 3.5 0.0-12.0 % Eosinophils (%) (Auto) 0.8 0.0-7.0 % Basophils (%) (Auto) 0.2 0.0-2.0 % Neutrophils # (Auto) 11.5 H 1.6-8.6 10 ^3/uL Lymphocytes # (Auto) 1.2 0.4-5.4 10 ^3/uL Monocytes # (Auto) 0.5 0-1.3 10 ^3/uL Eosinophils # (Auto) 0.1 0-0.8 10 ^3/uL Basophils # (Auto) 0 0-0.2 10 ^3/uL Nucleated Red Blood Cells 0.1 % Prothrombin Time Pending Prothrombin Time INR Pending Activated Partial Thromboplast Time Pending D-Dimer, Quantitative < 0.19 0.0-0.49 mg/L FEU Sodium Level 139 136-145 mmol/L Potassium Level 4.2 3.5-5.1 mmol/L Chloride Level 106 98-107 mmol/L Carbon Dioxide Level 23 20-31 mmol/L Anion Gap 10 5-15 Blood Urea Nitrogen 16 9-23 mg/dL Creatinine 1.14 0.700-1.30 mg/dL Glomerular Filtration Rate Calc 79 >90 mL/min BUN/Creatinine Ratio 14.0 10.0-20.0 Serum Glucose 118 H 74-106 mg/dL Calcium Level 9.4 8.7-10.4 mg/dL Magnesium Level 2.0 1.6-2.6 mg/dL Thyroid Stimulating Hormone (TSH) Pending Free Thyroxine (T4) Calculated Pending Plasma/Serum Blood Alcohol Pending Time of 1ST Reevaluation: 19:07 Reevaluation 1ST: Unchanged Patient Education/Counseling: Diagnosis, Treatment Family Education/Counseling: No Family Present SEPSIS Sepsis Screen Date sepsis recognized/suspect: Mar 31, 2025 Time Sepsis recognized/suspect: 1725 Recent Procedure: No On Antibiotic Therapy: Yes Respiratory Rate >20: No Heart Rate >90: Yes Temp<36 C (96.8 F) or >38.3 C: No SBP <90 or MAP <65 mmHG: No New Acute Mental Status Change: No Is the patient on CPAP, BIPAP,: No Physician Orders Troponin-I Hs (03/31/25 18:32) Troponin-I Hs (03/31/25 20:32) Electrocardigram (03/31/25 20:32) Chest Portable (03/31/25 17:32) Heplock Iv (03/31/25 17:32) Thyroid Stimulating Hormone (03/31/25 19:00) Free T4 (Free Thyroxine) (03/31/25 19:00) PTPTT (03/31/25 19:02) Metoprolol Inj (Lopressor) (03/31/25 19:15) Blood Alcohol (03/31/25 19:03) Vital Signs Date Time Temp Pulse Resp B/P (MAP) Pulse Ox O2 Delivery O2 Flow Rate FiO2 03/31/25 19:16 95 03/31/25 17:29 110 03/31/25 17:26 98.3 108 18 131/91 96 98.3 Laboratory Tests Test 03/31/25 17:36 White Blood Count 13.3 10^3/uL (4.4-10.8) H Departure 1 Departure Time of Disposition: 19:31 Impression: Primary Impression: Atrial fibrillation with RVR Disposition: ADMITTED INPATIENT Admit to: Tele Condition: Guarded Discharged With: Self Comments 49-year-old male with a history of prior alcohol abuse but has not been drinking recently now with new onset atrial fibrillation with rapid ventricular response. Patient was given metoprolol. Patient has no chest pain. Lab results reviewed. Patient will need to be admitted for supportive care and further cardiac workup. Critical Care Note Critical Care Time?: Yes (35 min-critical care time only) Critical care comment: Total critical care time: Approximately 36 minutes Due to a high probability of clinically significant, life threatening deterioration, the patient required my highest level of preparedness to intervene emergently and I personally spent this critical care time directly and personally managing the patient. This critical care time included obtaining a history; examining the patient; pulse oximetry; ordering and review of studies; arranging urgent treatment with development of a management plan; evaluation of patient's response to treatment; frequent reassessment; and, discussions with other providers. This critical care time was performed to assess and manage the high probability of imminent, life-threatening deterioration that could result in multi-organ failure. It was exclusive of separately billable procedures and treating other patients. Stability Stability form required: No Heart Score Heart Score: Heart Score Response (Comments) Value History Slightly Suspicious 0 EKG Repolarization Disturb 1 Age 45-64 1 Risk Factors 1 or 2 risk factors 1 Troponin Normal limit 0 Total 3 JORGE HORTON MD Mar 31, 2025 19:08
--- NOTE | 2025-03-31 19:20 | ECG ---
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
[2025-03-31 19:51] LABS: INR 0.97 (0.9-1.15); Partial Thromboplastin Time 28.1 SEC (24.5-34.5); Prothrombin Time 10.3 sec (9.3-11.8)
[2025-03-31] MEDS ORDERED: MORPHINE SULFATE 4 MG/ML SYR/VIAL IV PRN (20:00)
[2025-03-31] MEDS ORDERED: NITROGLYCERIN 0.4 MG SL TAB SL PRN (20:00)
[2025-03-31 21:02] VITALS: BP 123/85; TEMP 98.4
[2025-03-31 21:06] VITALS: PULSE 87; RESP 18; O2SAT 97
[2025-04-01] MEDS: METOPROLOL TARTRATE 1MG/1ML-5ML VIAL IV SCH (00:42)
== END 2025-03-31 23:50 | disposition left against medical advice (07) | DRG 201 ==
LOC: ER 17:23 → OVERFLOW 19:49
PROVIDERS: ADMIT Nurse Practitioner; ATTEND Nurse Practitioner
DX: I48.91 Unspecified atrial fibrillation (principal); F17.210 Nicotine dependence, cigarettes, uncomplicated; J45.909 Unspecified asthma, uncomplicated; F41.9 Anxiety disorder, unspecified
CPT/HCPCS: 36415; 71045; 80048; 80320; 83735; 84439; 84443; 84484; 85025; 85379; 85610; 85730; 93005; 99291; G0378

== ENCOUNTER 2025-04-18 12:04 | Emergency (ER) | payer MEDICAID ==
[~2025-04-18] VITALS: Ht 180.3 cm; Wt 95.0 kg
--- NOTE | 2025-04-18 12:55 | ED.PDOC ---
Psychiatric HPI Comments 49 y.o male presents to the ED for an evaluation of withdrawals. Patient reports history of heavy ETOH use, states years of daily hard liquor and beer intake and last drink was last night. Patient complains of tremors, weakness and anxiety given withdrawal state. He states he wants to quit drinking and would like to get hydrated given his tremors. He denies any other medical history. Also denies chest pain, SOB, abdominal pain, nausea, and vomiting. Chief Complaint: Withdrawal Time Seen by MD: 12:37 Primary Care Provider: NONE Reviewed Notes: Nurses Notes, Medications Information Source: Patient Mode of Arrival: Ambulatory Severity: Able to Care for Self Severity of Pain: None Severity of Mental Status: None Severity of Symptoms: Moderate Timing: Hours Duration: Since onset Presents with: None Circumstance: Withdrawal Symptoms Current substance abuse: ETOH Stressors: None History of: Alcoholism, ETOH Withdrawl Past Medical History PAST MEDICAL HISTORY: Denies Surgical History: Denies all surgeries Family History Family History: Reviewed,noncontributory to illness Social History Smoker: Cigarettes, Less Than 1 Pack/Day Alcohol: Heavy Drugs: Denies Drug Use Lives In: Home Constitutional: reports: weakness; denies: chills, diaphoresis, fatigue, fever, malaise, sweats, others EENTM: denies: blurred vision, double vision, ear bleeding, ear discharge, ear drainage, ear pain, ear ringing, eye pain, eye redness, hearing loss, mouth pain, mouth swelling, nasal discharge, nose bleeding, nose congestion, nose pain, photophobia, tearing, throat pain, throat swelling, voice changes, others Respiratory: denies: cough, hemoptysis, orthopnea, SOB at rest, shortness of breath, SOB with excertion, stridor, wheezing, others Cardiovascular: denies: chest pain, dizzy spells, diaphoresis, Dyspnea on exertion, edema, irregular heart beat, left arm pain, lightheadedness, palpitations, PND, syncope, others Gastrointestinal: denies: abdomen distended, abdominal pain, blood streaked bowels, constipated, diarrhea, dysphagia, difficulty swallowing, hematemesis, melena, nausea, poor appetite, poor fluid intake, rectal bleeding, rectal pain, vomiting, others Genitourinary: denies: burning, dysuria, flank pain, frequency, hematuria, incontinence, penile discharge, penile sore, pain, testicle pain, testicle swelling, urgency, others Neurological: reports: tremors; denies: dizziness, fainting, headache, left sided numbness, left sided weakness, numbness, paresthesia, pre-existing deficit, right sided numbness, right sided weakness, seizure, speech problems, tingling, weakness, others Musculoskeletal: denies: back pain, gout, joint pain, joint swelling, muscle pain, muscle stiffness, neck pain, others Integumetry: denies: bruises, change in color, change in hair/nails, dryness, laceration, lesions, lumps, rash, wounds, others Allergic/Immunocompromised: denies: Difficulty Healing, Frequent Infections, Hives, Itching, others Hematologic/Lymphatic: denies: anemia, blood clots, easy bleeding, easy bruising, swollen glands, others Endocrine: denies: excessive hunger, excessive sweating, excessive thirst, excessive urination, flushing, intolerance to cold, intolerance to heat, unexplained weight gain, unexplained weight loss, others Psychiatric: reports: anxiety; denies: bipolar disorder, depression, hopeless, panic disorder, schizophrenia, sleepless, suicidal, others All Other Systems: Reviewed and Negative Physical Exam General Appearance: Moderate Distress HEENT: Normal ENT Inspection, Pharynx Normal, TMs Normal Neck: Full Range of Motion, Non-Tender, Normal, Normal Inspection Respiratory: Chest Non-Tender, Lungs Clear, No Accessory Muscle Use, No Respiratory Distress, Normal Breath Sounds Cardiovascular: No Edema, No JVD, No Murmur, No Gallop, Normal Peripheral Pulses, Regular Rate/Rhythm Breast Exam: Deferred Gastrointestinal: No Organomegaly, Non Tender, No Pulsatile Mass, Normal Bowel Sounds, Soft Genitalia: Deferred Pelvic: Deferred Rectal: Deferred Extremities: No calf tenderness, Normal capillary refill, Normal inspection, Normal range of motion, Non-tender, No pedal edema Musculoskeletal : Apperance: Normal Neurologic: Alert, chemical treatment operator II-XII nml as Tested, No Motor Deficits, Normal Affect, Normal Mood, No Sensory Deficits Cerebellar Function: Normal Reflexes: Normal Skin: Dry, Normal Color, Warm Peripheral Pulses: 3+ Radial (R), 3+ Radial (L) Lymphatic: No Adenopathy Was a procedure done? Was a procedure done?: No Psych Differential Dx Psych. Differential Dx: Anxiety Intoxication Differential Dx: Alcohol Withdraw Syndrome, Dehydration, Electrolyte Imbalance, Thiamine Deficiency X-Ray, Labs, Meds, VS Vital Signs Date Time Temp Pulse Resp B/P (MAP) Pulse Ox O2 Delivery O2 Flow Rate FiO2 04/18/25 13:20 98.3 87 16 141/78 (99) 98 98.3 04/18/25 13:20 87 16 98 Room Air* 0 21 04/18/25 12:30 101 04/18/25 12:07 98.6 109 18 161/92 95 98.6 Lab Test 04/18/25 15:34 04/18/25 14:57 04/18/25 13:09 04/18/25 12:24 Range/Units Urine Color Colorless Yellow Urine Clarity Clear Clear Urine pH 7.0 5.0-9.0 Urine Specific [place] 1.005 1.001-1.035 Urine Protein Negative Negative Urine Ketones Negative Negative Urine Blood Negative Negative /uL Urine Nitrite Negative Negative Urine Bilirubin Negative Negative Urine Urobilinogen Normal Negative mg/dL Urine Leukocyte Esterase Negative Negative /uL Urine RBC <1 0 - 3 /hpf Urine Microscopic WBC < 1 0-3 /HPF Urine Squamous Epithelial Cells None seen <5 /hpf Urine Bacteria None seen None Seen /hpf Urine Glucose Normal Normal mg/dL POC Glucose 127 H 108 H 70-106 mg/dl Plasma/Serum Blood Alcohol 3.7 <10 mg/dL Current Medications Medications (Trade) Dose Ordered Sig/Eliza Route Start Time Stop Time Status Last Admin Thiamine HCl 100 mg ONCE ONCE IV 04/18/25 13:00 04/18/25 13:01 DC 04/18/25 14:26 Lorazepam (Ativan Inj) 1 mg ONCE ONCE IV 04/18/25 13:00 04/18/25 13:01 DC 04/18/25 14:25 Sodium Chloride 1,000 ml @ 1,000 mls/hr Q1H ONCE IV 04/18/25 13:00 04/18/25 13:59 DC 04/18/25 14:24 Sodium Chloride 1,000 ml @ 150 mls/hr Q6H40M ONCE IV 04/18/25 13:00 04/18/25 19:39 04/18/25 14:24 Patient alert. Complaining of withdrawing from alcohol. Vitals stable. Answering questions. Blood alcohol level not that high. Establish intravenous access. Was given fluids. Was given thiamine. Was given Ativan. Counseled patient on effects of drinking for 15 minutes. Explained to the patient. Was told to follow up with his primary care physician. Was told to come back if there is any problem. Time of 1ST Reevaluation: 12:55 Reevaluation 1ST: Unchanged Patient Education/Counseling: Diagnosis, Treatment, Prognosis Family Education/Counseling: No Family Present Departure 1 Departure Time of Disposition: 16:31 Impression: Primary Impression: Alcohol withdrawal Qualified Codes: F10.930 - Alcohol use, unspecified with withdrawal, uncomplicated Disposition: 01 HOME / SELF CARE / HOMELESS Condition: Good e-Prescriptions Chlordiazepoxide Hcl (Ni-1) (I (Librium) 10 Mg Cap 10 MG PO DAILY for 5 Days, #5 CAP Prov: ASHVIN TIMMONS MD 04/18/25 Discharged With: Self Critical Care Note Critical Care Time?: No Stability Stability form required: No I personally scribed for ASHVIN TIMMONS MD ([email or web address]) on 04/18/25 at 12:55. Electronically submitted by Daniela Black ([facility]). ASHVIN TIMMONS MD Apr 18, 2025 12:55
[2025-04-18 13:20] VITALS: PULSE 87; RESP 16; O2SAT 98
[2025-04-18] MEDS: SODIUM CHLORIDE 0.9% 1,000 ML IV ONE ×2 (14:24)
[2025-04-18] MEDS: LORazepam 2MG/ML-1ML VIAL IV ONE (14:25)
[2025-04-18] MEDS: THIAMINE 100mg/ml INJ (200mg/2ml VIAL) IV ONE (14:26)
--- NOTE | 2025-04-18 14:32 | ECG ---
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
[2025-04-18 16:14] LABS: Urine Protein, UAD Negative (Negative)
[2025-04-18] MEDS ORDERED: CHL10C PO (16:43)
[2025-04-18 16:49] VITALS: BP 131/79; PULSE 86; RESP 20; TEMP 98.2; O2SAT 95
== END 2025-04-18 17:29 | disposition home or self-care (01) ==
LOC: ER 12:04
DX: F10.939 Alcohol use, unspecified with withdrawal, unspecified (principal); Z79.899 Other long term (current) drug therapy; Y90.9 Presence of alcohol in blood, level not specified
CPT/HCPCS: 36415; 80320; 81001; 82947; 93005; 96361; 96374; 96375; 99285; J2060; J3411; J7030; 82962